=== PATIENT | female | born 1985 | race Caucasian/White ===

== ENCOUNTER 2017-01-22 15:19 | Emergency (ER) | payer OTHER ==
--- NOTE | 2017-01-22 15:35 | ED Physician Documentation ---
PD HPI LOWER EXT INJURY - Stated complaint Stated Complaint: THIGH PX - History obtained from History obtained from: Patient - History of Present Illness PD HPI LOW EXT INJURY LOCATION: Other (She developed pain in the posterior left thigh last night, it is a tightness that is nonradiating. She is worried about DVT, but has no identifiable risk factors. No recent travel, control use , or history of same. She denies any chest pain or trouble breathing. There was no injury per se.) Review of Systems Constitutional: reports: Reviewed and negative Cardiac: denies: Chest pain / pressure, Palpitations Respiratory: denies: Dyspnea, Cough GI: reports: Reviewed and negative PD PAST MEDICAL HISTORY - Past Medical History Neuro: None Endocrine/Autoimmune: None - Past Surgical History Past Surgical History: No - Present Medications Home Medications: Ambulatory Orders Medication Instructions Recorded Confirmed buPROPion [Wellbutrin Sr] 100 mg PO BID 01/22/17 01/22/17 - Allergies Allergies/Adverse Reactions: Allergies Allergy/AdvReac Type Severity Reaction Status Date / Time No Known Drug Allergies Allergy Verified 01/22/17 15:41 - Social History Does the pt smoke?: No Smoking Status: Never smoker Does the pt drink ETOH?: Yes Does the pt have substance abuse?: No - POLST Patient has POLST: No PD ED PE NORMAL - Vitals Vital signs reviewed: Yes - General General: Alert and oriented X 3, No acute distress - Neck Neck: Supple, no meningeal sign, No bony TTP - Extremities Extremities: Other (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 Some tenderness Mid posterior L hamstring. Normal gait. No pain with leg extension or int/ext rotation. No cellulitis/rash.) - Neuro Neuro: Alert and oriented X 3, Normal speech - Psych Psych: Normal mood, Normal affect Results - Vitals Vitals: Vital Signs - 24 hr 01/22/17 15:33 Temperature 37.2 C Heart Rate 111 H Respiratory 20 Rate Blood Pressure 150/91 H O2 Saturation 98 Oxygen O2 Source Room air - Rads (name of study) LLE DVT SCAN Radiology: Prelim report reviewed (negative) PD MEDICAL DECISION MAKING - ED course ED course: 31-year-old woman presents with atraumatic left posterior thigh/hamstring pain. Most likely muscular. Specific concern for DVT was ruled out by ultrasound. She declined pain medication. Departure - Departure Disposition: 01 Home, Self Care Clinical Impression: Left leg pain Condition: Good Record reviewed to determine appropriate education?: Yes Instructions: ED Acute Pain [facility] Comments: Call your doctor to arrange a follow-up appointment, make the next available appointment. In the interim, return anytime if worse or if new symptoms develop. Your blood pressure was elevated today on check into the emergency department. This does not mean that you have hypertension, it is a common phenomenon to come to the emergency department and have elevated blood pressure. I recommend that you see your primary care physician within the week to have it rechecked when you are feeling better.
[2017-01-22 17:22] VITALS: BP 130/90
--- NOTE | 2017-01-22 18:12 | Ultrasound Preliminary Report ---
Exam: US DUPLEX EXT VEINS LEFT IMPRESSION: No evidence for deep venous thrombosis. [facility] SITE ID: [id number]
--- NOTE | 2017-01-22 18:15 | Ultrasound Report ---
EXAM: LEFT LOWER EXTREMITY VENOUS ULTRASOUND EXAM DATE: 01/22/2017 05:08 PM. CLINICAL HISTORY: Left leg pain without trauma. COMPARISON: None. TECHNIQUE: Real-time sonographic vascular imaging was performed by the coal handler through the lower extremity utilizing both color-flow and Doppler spectral analysis. Multiple maintenance representative static azael ges were saved for review. FINDINGS: Common Femoral Vein (CFV): Normal. CFV-GSV Junction: Normal. Profunda Femoral Vein (PFV): Normal. Femoral Vein (FV) Prox: Normal. Femoral Vein (FV) Mid: Normal. Femoral Vein (FV) Dist: Normal. Popliteal Vein: Normal. Posterior Tibial Veins: Normal. Peroneal Veins: Normal. Other: No fluid collections are seen in the area of pain at the left posterior mid thigh. IMPRESSION: No evidence for deep venous thrombosis. [facility] Referring Provider Line: [phone] SITE ID: [id number]
== END 2017-01-22 17:20 | disposition home or self-care (01) ==
LOC: ED 15:19
DX: M79.652 Pain in left thigh (principal); R03.0 Elevated blood-pressure reading, without diagnosis of hypertension
CPT/HCPCS: 99283

== ENCOUNTER 2017-06-05 14:28 | Emergency (ER) | payer OTHER ==
[2017-06-05 14:39] VITALS: BP 143/92
[2017-06-05] MEDS ORDERED: TETANUS/DIPHTHERIA/PERTUSSIS 0.5 ML SYRINGE IM ONE (14:59)
[2017-06-05] MEDS ORDERED: AMOX/CLAV 875 MG/125 MG TABLET PO STA (14:59)
--- NOTE | 2017-06-05 15:02 | ED Physician Documentation ---
PD HPI WOUND RECHECK - Stated complaint Stated Complaint: RAT BITE RIGHT FINGER - Chief complaint Chief Complaint: Wound - Histroy obtained from History obtained from: Patient - History of Present Illness Location: Other (31-year-old woman with unknown tetanus status was bitten by a pet store rats that she was preparing to feed to her snake last night and has a puncture wound on the right index finger and is here seeking tetanus vaccination.) Review of Systems Constitutional: denies: Fever, Chills GI: reports: Reviewed and negative Skin: reports: Reviewed and negative PD PAST MEDICAL HISTORY - Past Medical History Cardiovascular: None Respiratory: None Neuro: None Endocrine/Autoimmune: None GI: None EVENT DECORATOR AND DESIGNER: None : None HEENT: None Psych: Depression, Anxiety Musculoskeletal: None Derm: None - Past Surgical History Past Surgical History: No - Present Medications Home Medications: Ambulatory Orders Medication Instructions Recorded Confirmed buPROPion [Wellbutrin Sr] 100 mg PO BID 01/22/17 01/22/17 Amox/Clav 875/125 [Augmentin] 1 each PO Q12H #14 tablet 06/05/17 Cholecalciferol (Vitamin D3) 1 tab PO DAILY 06/05/17 06/05/17 [Vitamin D3] raNITIdine [Zantac] 1 tab PO DAILY 06/05/17 06/05/17 - Allergies Allergies/Adverse Reactions: Allergies Allergy/AdvReac Type Severity Reaction Status Date / Time No Known Drug Allergies Allergy Verified 06/05/17 14:39 - Social History Does the pt smoke?: No Smoking Status: Never smoker Does the pt drink ETOH?: Yes Does the pt have substance abuse?: No - Immunizations Immunizations are current?: No Immunizations: TDAP >10years/unknown - POLST Patient has POLST: No PD ED PE NORMAL - Vitals Vital signs reviewed: Yes - General General: Alert and oriented X 3, No acute distress - Extremities Extremities: Other (There is a single nontender puncture wound that is bandaged with full range of motion over the middle phalanx dorsally of the right second finger with no evidence of infection.) - Neuro Neuro: Alert and oriented X 3, Normal speech Results - Vitals Vitals: Vital Signs - 24 hr 06/05/17 14:32 Temperature 36.7 C Heart Rate 75 Respiratory 16 Rate Blood Pressure 143/92 H O2 Saturation 95 Oxygen O2 Source Room air Departure - Departure Disposition: 01 Home, Self Care Clinical Impression: Rat bite Qualifiers: Encounter type: initial encounter Qualified Code(s): W53.11XA - Bitten by rat, initial encounter Condition: Good Record reviewed to determine appropriate education?: Yes Instructions: Bites Scratches Animal Prescriptions: Amox/Clav 875/125 [Augmentin] 1 each PO Q12H #14 tablet Comments: Come back for any signs of infection which would include: Redness, swelling, drainage, increased pain, or fevers.
== END 2017-06-05 15:06 | disposition home or self-care (01) ==
LOC: ED 14:28
DX: S61.230A Puncture wound without foreign body of right index finger without damage to nail, initial encounter (principal); W53.11XA Bitten by rat, initial encounter; Z23 Encounter for immunization
CPT/HCPCS: 90471; 90715; 99283; A9270

== ENCOUNTER 2017-06-09 06:59 | Emergency (ER) | payer OTHER ==
[2017-06-09] MEDS ORDERED: ACETAMINOPHEN 325 MG TABLET PO STA (07:33)
[2017-06-09] MEDS ORDERED: SODIUM CHLORIDE 0.9% 1,000 ML IV ONE ×2 (07:33→10:10)
--- NOTE | 2017-06-09 07:48 | ED Physician Documentation ---
PD HPI NVD - Stated complaint Stated Complaint: FEVER/VOMITING - Chief complaint Chief Complaint: Fever - History obtained from History obtained from: Patient - History of Present Illness Timing - onset: How many days ago (2) Timing - duration: Days (2) Timing - details: Gradual onset, Still present Associated symptoms: Fever Contributing factors: Recent antibiotics. No: Sick contact Improved by: Laying still Similar symptoms before: Has not had sx before Recently seen: Emergency Dept - Additonal information Additional information: 31 y/o female with a history of gallstones and vertigo has developed a fever accompanied by vomiting back pain and diarrhea. She has recently been seen in the ED after being bit by a rat (food supply for her snake) and placed on augmentin and given a tetanus booster. She does not feel that the augmentin has upset her stomach and notes the diarrhea is only loose stool. She has some back pain in the upper and lower back and not in the flanks. She has some cough when she eats that pre-dates all of her symptoms and she has been preparing to see her doctor about a "fluttering" in her throat. Her finger does not appear in any way inflamed. Review of Systems Constitutional: reports: Fever Eyes: denies: Decreased vision Ears: denies: Ear pain Nose: denies: Rhinorrhea / runny nose, Congestion Throat: denies: Dental pain / toothache Cardiac: denies: Chest pain / pressure, Palpitations Respiratory: denies: Dyspnea, Cough GI: reports: Nausea, Vomiting, Diarrhea. denies: Abdominal Pain : denies: Dysuria, Frequency Skin: denies: Rash Musculoskeletal: reports: Back pain. denies: Neck pain, Extremity pain Neurologic: denies: Generalized weakness, Focal weakness, Numbness PD PAST MEDICAL HISTORY - Past Medical History Cardiovascular: None Respiratory: None Neuro: None Endocrine/Autoimmune: None GI: None DRILLER HAND: None : None HEENT: None Psych: Depression, Anxiety Musculoskeletal: None Derm: None - Past Surgical History Past Surgical History: No - Present Medications Home Medications: Ambulatory Orders Medication Instructions Recorded Confirmed buPROPion [Wellbutrin Sr] 100 mg PO BID 01/22/17 01/22/17 Amox/Clav 875/125 [Augmentin] 1 each PO Q12H #14 tablet 06/05/17 Cholecalciferol (Vitamin D3) 1 tab PO DAILY 06/05/17 06/05/17 [Vitamin D3] raNITIdine [Zantac] 1 tab PO DAILY 06/05/17 06/05/17 - Allergies Allergies/Adverse Reactions: Allergies Allergy/AdvReac Type Severity Reaction Status Date / Time No Known Drug Allergies Allergy Verified 06/09/17 07:08 - Social History Does the pt smoke?: No Smoking Status: Never smoker Does the pt drink ETOH?: Yes Does the pt have substance abuse?: No - Immunizations Immunizations are current?: No Immunizations: TDAP >10years/unknown - POLST Patient has POLST: No PD ED PE NORMAL - Vitals Vital signs reviewed: Yes (tachy and hypertensive ) - General General: Alert and oriented X 3, No acute distress, Well developed/nourished - HEENT HEENT: Atraumatic, PERRL, EOMI, Ears normal, Moist mucous membranes, Pharynx benign, Dentition benign - Neck Neck: Supple, no meningeal sign, No bony TTP - Cardiac Cardiac: No murmur, Other (tachy to 130) - Respiratory Respiratory: No respiratory distress, Clear bilaterally - Abdomen Abdomen: Soft, Non tender - Back Back: No CVA TTP, No spinal TTP - Derm Derm: Normal color, Warm and dry, No rash - Extremities Extremities: No deformity, No edema - Neuro Neuro: Alert and oriented X 3, No motor deficit, No sensory deficit, Normal speech Eye Opening: Spontaneous Motor: Obeys Commands Verbal: Oriented GCS Score: 15 - Psych Psych: Normal mood, Normal affect Results - Vitals Vitals: Vital Signs - 24 hr 06/09/17 06/09/17 06/09/17 07:06 08:22 09:37 Temperature 37.1 C Heart Rate 154 H 115 H 104 H Respiratory 17 18 20 Rate Blood Pressure 132/82 H 121/77 113/67 O2 Saturation 96 98 96 06/09/17 10:23 Temperature 36.5 C Heart Rate 106 H Respiratory 16 Rate Blood Pressure 105/74 O2 Saturation 97 Oxygen O2 Source Room air - Labs Labs: Laboratory Tests 06/09/17 06/09/17 06/09/17 08:40 08:40 08:40 WBC 18.9 H RBC 4.30 Hgb 12.4 Hct 36.0 L MCV 83.8 MCH 28.8 MCHC 34.4 RDW 12.3 Plt Count 223 MPV 8.6 Neut # 17.8 H Lymph # 0.5 L [place] # 0.4 Eos # 0.0 Baso # 0.2 H Absolute Nucleated RBC 0.00 Nucleated RBC % 0.0 Sodium 133 L Potassium 3.2 L Chloride 102 Carbon Dioxide 21 Anion Gap 10.0 BUN 16 Creatinine 0.9 Estimated GFR (MDRD) 74 L Glucose 103 H Calcium 7.7 L Total Bilirubin 0.6 AST 16 ALT 15 Alkaline Phosphatase 30 L Total Protein 6.3 L Albumin 3.9 Globulin 2.4 Albumin/Globulin Ratio 1.6 Lipase 18 L TSH 0.71 Urine Color Urine Clarity Urine pH Ur Specific [place] Urine Protein Urine Glucose (UA) Urine Ketones Urine Occult Blood Urine Nitrite Urine Bilirubin Urine Urobilinogen Ur Leukocyte Esterase Urine RBC Urine WBC Ur Squamous Epith Cells Urine Bacteria Ur Microscopic Review Urine Culture Comments Urine HCG, Qual 06/09/17 09:05 WBC RBC Hgb Hct MCV MCH MCHC RDW Plt Count MPV Neut # Lymph # [place] # Eos # Baso # Absolute Nucleated RBC Nucleated RBC % Sodium Potassium Chloride Carbon Dioxide Anion Gap BUN Creatinine Estimated GFR (MDRD) Glucose Calcium Total Bilirubin AST ALT Alkaline Phosphatase Total Protein Albumin Globulin Albumin/Globulin Ratio Lipase TSH Urine Color YELLOW Urine Clarity CLEAR Urine pH 5.5 Ur Specific [place] >=1.030 H Urine Protein TRACE Urine Glucose (UA) NEGATIVE Urine Ketones >=80 H Urine Occult Blood LARGE H Urine Nitrite NEGATIVE Urine Bilirubin NEGATIVE Urine Urobilinogen 0.2 (NORMAL) Ur Leukocyte Esterase NEGATIVE Urine RBC TNTC H Urine WBC 0-3 Ur Squamous Epith Cells MOD Squamous H Urine Bacteria Rare Ur Microscopic Review INDICATED Urine Culture Comments NOT INDICATED Urine HCG, Qual NEGATIVE - Rads (name of study) 2 veiw chest Radiology: Prelim report reviewed (Impression: Normal two-view chest radiography.), EMP read indepedently, See rad report Procedures - IVC sono (time) 0720 Bedside IVC sono: IVC measures (cm) (1.27), Dehydration (mild) PD MEDICAL DECISION MAKING - ED course Complexity details: reviewed results, re-evaluated patient, considered differential, d/w patient, d/w family ED course: 31-year-old female with acute onset of fever and vomiting has recently been given a tetanus booster and has been on some antibiotic. She does not have further indication for the prophylactic use of the antibiotic and I have asked her to discontinue this and she is administered intravenous fluid for mild dehydration. She appeared significantly tachycardic on arrival and this is improved with some hydration as did her overall feeling of wellness. She did not appear dehydrated enough to cause the level of tachycardia. She is able to recall that previously she has had a low grade fever with a tetanus immunization and this was not as bad as today. Departure - Departure Disposition: 01 Home, Self Care Clinical Impression: Post-immunization reaction Qualifiers: Encounter type: initial encounter Qualified Code(s): T88.1XXA - Other complications following immunization, not elsewhere classified, initial encounter Condition: Stable Instructions: ED Fever Control Follow-Up: MARIAM OTTO [Primary Care Provider] - Comments: Today it appears you have had a reaction to the tetanus immunization. In addition you were placed on the Augmentin prophylactically to prevent infection and today it appears there is no evidence of infection and I recommend you discontinue the Augmentin. Use Tylenol for fever and increase your fluids.
[2017-06-09] MEDS ORDERED: ONDANSETRON 4 MG/2 ML VIAL IVP STA (08:12)
--- NOTE | 2017-06-09 08:30 | XRAY Report ---
EXAM: CHEST RADIOGRAPHY EXAM DATE: 06/09/2017 07:35 AM. CLINICAL HISTORY: Cough and fever. COMPARISON: 06/30/2008. TECHNIQUE: 2 views. FINDINGS: Lungs/Pleura: No focal opacities evident. No pleural effusion. No pneumothorax. Normal volumes. Mediastinum: Heart and mediastinal contours are unremarkable. Other: Negative bony structures. IMPRESSION: Normal 2-view chest radiography. [facility] Referring Provider Line: [phone] SITE ID: [id number]
[2017-06-09 08:50] LABS: BASOPHILS # (AUTO) 0.2 10^3/uL (0.0-0.1); HGB - HEMOGLOBIN 12.4 g/dL (12.0-16.0); LYMPHOCYTES # (AUTO) 0.5 10^3/uL (1.5-3.5); LYMPHOCYTES % (AUTO) 2.5 %; MEAN CORPUSCULAR HEMOGLOBIN 28.8 pg (27.0-31.0); MEAN CORPUSCULAR HGB CONC 34.4 g/dL (32.0-36.0); MEAN CORPUSCULAR VOLUME 83.8 fL (81.0-99.0); MEAN PLATELET VOLUME 8.6 fL (7.9-10.8); MONOCYTES # (AUTO) 0.4 10^3/uL (0.0-1.0); MONOCYTES % (AUTO) 2.3 %; NEUTROPHILS # (AUTO) 17.8 10^3/uL (1.5-6.6); NEUTROPHILS % (AUTO) 94.2 %; PLT - PLATELET COUNT 223 10^3/uL (130-450); RED CELL DISTRIBUTION WIDTH 12.3 % (12.0-15.0); WHITE BLOOD COUNT 18.9 x10^3/uL (4.8-10.8)
[2017-06-09 09:02] LABS: ALBUMIN 3.9 g/dL (3.2-5.5); ALBUMIN/GLOBULIN RATIO 1.6 (1.0-2.2); BILIRUBIN,TOTAL 0.6 mg/dL (0.2-1.0); CALCIUM 7.7 mg/dL (8.5-10.3); CREATININE 0.9 mg/dL (0.4-1.0); TOTAL PROTEIN 6.3 g/dL (6.7-8.2)
[2017-06-09 09:29] LABS: GLUCOSE, URINE (UA) NEGATIVE (NEGATIVE); KETONES,URINE (UA) >=80 mg/dL (NEGATIVE); LEUKOCYTE ESTERASE, URINE NEGATIVE (NEGATIVE); NITRITE,URINE NEGATIVE (NEGATIVE); OCCULT BLOOD,URINE LARGE (NEGATIVE); PH,URINE 5.5 PH (5.0-7.5); PROTEIN,URINE TRACE mg/dL (NEGATIVE); UROBILINOGEN,URINE 0.2 (NORMAL) E.U./dL (NORMAL)
[2017-06-09 09:33] LABS: BILIRUBIN,URINE NEGATIVE (NEGATIVE); CLARITY,URINE CLEAR (CLEAR); HCG UR QUAL NEGATIVE; ICTOTEST,URINE NEGATIVE
[2017-06-09 09:40] LABS: BACTERIA,URINE Rare /HPF (None Seen); RBC,URINE TNTC /HPF (0-5); SQUAMOUS EPITHELIAL CELL,UR MOD Squamous (<= Few)
[2017-06-09 10:24] VITALS: BP 105/74
== END 2017-06-09 10:38 | disposition home or self-care (01) ==
LOC: ED 06:59
DX: T88.1XXA Other complications following immunization, not elsewhere classified, initial encounter (principal); R50.9 Fever, unspecified; R11.10 Vomiting, unspecified; T50.Z95A Adverse effect of other vaccines and biological substances, initial encounter
CPT/HCPCS: 36415; 71046; 80053; 81001; 81025; 83690; 84443; 85025; 87040; 96361; 96374; 99283; 99284; A9270; 81003; 87086